=== PATIENT | female | born 1950 | race Caucasian/White ===

== ENCOUNTER 2016-08-28 10:45 | Emergency (ER) | payer MEDICARE ==
[2016-08-28 10:58] VITALS: BP 145/33
--- NOTE | 2016-08-31 08:22 | ER ---
Date of Service: 08/28/2016 SUBJECTIVE: Evonne presents to the emergency room with complaints of body aches, cough, and congestion. The patient states she has been experiencing this for approximately 2 days. She denies any nausea or vomiting. Denies any skin rashes. She states that she has been around her . Her was diagnosed with influenza today. She states that she is experiencing similar symptoms like him. PAST MEDICAL HISTORY: None. MEDICATIONS: None. ALLERGIES: NKDA. REVIEW OF SYSTEMS: Positive for fever, chills, cough, chest congestion. Denies any shortness of breath. Denies any palpitations. PHYSICAL EXAMINATION: General: This is a 66-year-old female patient, in no acute distress. Vital Signs: Blood pressure is 145/33, pulse rate is 82, temperature is 36.2, respiratory rate 16, O2 saturations 98%. Skin: Warm, pink, and dry. HEENT. Head is normocephalic, atraumatic. Mouth, oral mucosa is moist. No erythema or exudate noted in the hypopharynx. Neck: Supple. No masses. There is no lymphadenopathy. Lungs: Clear to auscultation. Heart: Regular rate and rhythm. Abdomen: Soft, nontender. There is no hepatosplenomegaly or masses noted. Extremities: Without edema. Neurologic: The patient is alert, oriented, answers all questions appropriately. Influenza A and B swabs were obtained and both were negative. ASSESSMENT: Upper respiratory tract infection likely secondary to influenza. PLAN: Follow up in the clinic in the next 10 to 14 days. Tylenol and ibuprofen for discomfort. Tamiflu 75 mg 1 twice daily for 5 days. All questions were answered. MWK: 08/30/2016 06:09:58 MODL: 08/30/2016 10:50:33 /[id number]
== END 2016-08-28 12:48 | disposition home or self-care (01) ==
LOC: VM.ED 10:45
DX: J06.9 Acute upper respiratory infection, unspecified (principal); Z20.828 Contact with and (suspected) exposure to other viral communicable diseases
CPT/HCPCS: 71020; 87081; 87804; 87880; 99283; 99283-GF